=== PATIENT | male | born 1975 | race Caucasian/White ===

== ENCOUNTER 2021-03-10 10:09 | Emergency (ER) | payer OTHER ==
[2021-03-10 11:01] LABS: Absolute Lymphocytes (CBC) 2.5 K/uL (0.7-4.9); Basophils % 0.5 % (0-1.3); Hematocrit 44.7 % (39.6-49.0); MPV 9.6 fL (7.6-11.3); Protime INR 0.95; RBC Red Blood Cell Count 5.13 M/uL (4.33-5.43)
[2021-03-10 11:14] LABS: ALT/SGPT 48 U/L (12-78); AST/SGOT 22 U/L (15-37); Albumin 3.9 g/dL (3.4-5.0); Alkaline Phosphatase 79 U/L (45-117); BUN Blood Urea Nitrogen 20 mg/dL (7-18); Bicarbonate 24 mmol/L (21-32); Bilirubin Direct 0.2 mg/dL (0-0.2); Bilirubin Total 1.5 mg/dL (0.2-1.0); Glucose Level 103 mg/dL (74-106); NT PRO-BNP 27 pg/mL (<125); Potassium 4.1 mmol/L (3.5-5.1); Protein, Total 7.3 g/dL (6.4-8.2); Sodium Level 142 mmol/L (136-145); Troponin (Emerg Dept Use Only) < 0.02 ng/mL (0.0-0.045)
--- NOTE | 2021-03-10 11:34 | RAD REPORT ---
EXAM DESCRIPTION: CT - Chest For Pe Angio - 03/10/2021 11:11 am CLINICAL HISTORY: CHEST PAIN COMPARISON: None FINDINGS: Chest Wall: No suspicious thyroid nodules or pathologic lymphadenopathy. Lungs: No acute abnormality. Pleura: No significant effusions or pneumothorax. Mediastinum/meeta: No pathologic lymphadenopathy. Pulmonary arteries/Aorta: No filling defect identified. No aortic aneurysm. Heart: No significant pericardial effusion. Normal heart size. Upper abdomen: No acute abnormality. Bones: No acute abnormality. IMPRESSION: Negative for pulmonary embolism. No acute findings within the chest.
--- NOTE | 2021-03-10 11:35 | RAD REPORT ---
EXAM DESCRIPTION: RAD - Chest Single View - 03/10/2021 11:00 am CLINICAL HISTORY: CHEST PAIN COMPARISON: CHEST PA AND LAT 2 VIEW dated 11/16/2011; CHEST PA AND LAT 2 VIEW dated 09/10/2010 FINDINGS: No evidence of edema or pneumonia. The heart size is within normal limits.No acute osseous abnormality. No significant pleural effusions or pneumothorax. IMPRESSION: No acute cardiopulmonary disease.
--- NOTE | 2021-03-10 12:15 | ER ---
Nurse's Notes [facility] Name: Mookie Garcia Jr Age: 46 yrs Sex: Male : 1975 Arrival Date: 03/10/2021 Time: 10:11 Bed 3 Private MD: Diagnosis: Chest pain, unspecified Presentation: 03/10 10:17 Chief complaint: Patient states: left sided chest pain started last night , iw intermittent, worse when moving, and left arm felt tingly this morning, was golfing yesterday. Coronavirus screen: At this time, the client does not indicate any symptoms associated with coronavirus-19. Ebola Screen: Patient negative for fever greater than or equal to 101.5 degrees Fahrenheit, and additional compatible Ebola Virus Disease symptoms Patient denies exposure to infectious person. Patient denies travel to an Ebola-affected area in the 21 days before illness onset. No symptoms or risks identified at this time. Initial Sepsis Screen: Does the patient meet any 2 criteria? No. Patient's initial sepsis screen is negative. Does the patient have a suspected source of infection? No. Patient's initial sepsis screen is negative. Risk Assessment: Do you want to hurt yourself or someone else? Patient reports no desire to harm self or others. Onset of symptoms was March 09, 2021. 10:17 Method Of Arrival: Ambulatory iw 10:17 Acuity: SERAFIN 3 iw Historical: - Allergies: 10:19 NKA; iw - Home Meds: 10:19 None [Active]; iw - PMHx: 10:19 None; iw - PSHx: 10:19 None; iw - Immunization history:: Client reports receiving the 1st dose of the Covid vaccine, February 22, 2021. - Social history:: Smoking status: Patient/guardian denies using tobacco, Stopped _ months ago 4. - Family history:: not pertinent. - Hospitalizations: : No recent hospitalization is reported. Screenin:32 Abuse screen: Denies threats or abuse. Denies injuries from another. Nutritional ph screening: No deficits noted. Tuberculosis screening: No symptoms or risk factors identified. Fall Risk None identified. Assessment: 10:53 General: Appears in no apparent distress. comfortable, well groomed, Behavior is calm, ph cooperative, appropriate for age, Denies fever, feeling ill. Pain: Complains of pain in anterior aspect of left upper chest and mid-sternal area Pain does not radiate. Pain currently is 3 out of 10 on a pain scale. at worst was 9 out of 10 on a pain scale. Quality of pain is described as sharp, Pain began last night Is intermittent. Neuro: Level of Consciousness is awake, alert, obeys commands, Oriented to person, place, time, situation. Cardiovascular: Reports chest pain, shortness of breath, Denies lightheadedness, nausea, palpitations, vomiting, Capillary refill < 3 seconds in bilateral fingers Patient's skin is warm and dry. Rhythm is sinus rhythm Chest pain quality is sharp, is located in left anterior chest wall is aggravated by breathing. Respiratory: Airway is patent Respiratory effort is even, unlabored, Respiratory pattern is regular, symmetrical. GI: No signs and/or symptoms were reported involving the gastrointestinal system. Derm: Skin is intact, is healthy with good turgor, Skin is pink, warm \T\ dry. Musculoskeletal: Circulation, motion, and sensation intact. Range of motion: limited in all extremities. 11:57 Reassessment: Patient appears in no apparent distress at this time. Patient and/or ph family updated on plan of care and expected duration. Pain level reassessed. Patient is alert, oriented x 3, equal unlabored respirations, skin warm/dry/pink. 12:35 Reassessment: Patient appears in no apparent distress at this time. Patient and/or ph family updated on plan of care and expected duration. Pain level reassessed. Patient is alert, oriented x 3, equal unlabored respirations, skin warm/dry/pink. Pt instructed to follow up w/ crayon sawyer, d/c home. Vital Signs: 10:17 BP 141 / 100; Pulse 70; Resp 16; Temp 98.7; Pulse Ox 100% on R/A; Weight 86.18 kg; iw Height 5 ft. 8 in. (172.72 cm); Pain 8/10; 10:55 BP 139 / 81; Pulse 69; Resp 20; Pulse Ox 99% on R/A; Pain 3/10; ph 11:57 BP 139 / 87; Pulse 75; Resp 18; Pulse Ox 98% on R/A; ph 12:35 Temp 98.2; ph 10:17 Body Mass Index 28.89 (86.18 kg, 172.72 cm) iw Vitals: 10:55 Cardiac Rhythm Assessment Sinus rhythm. ph ED Course: 10:11 Patient arrived in ED. rg4 10:19 Triage completed. iw 10:20 Arm band placed on. iw 10:22 Syd Mckeon MD is Attending Physician. rn 10:32 Edda Lopez RN is Primary Nurse. ph 10:32 Patient has correct armband on for positive identification. Placed in gown. Bed in low ph position. Call light in reach. Side rails up X 1. engine monitor on. Pulse ox on. NIBP on. Door closed. Noise minimized. 10:40 Initial lab(s) drawn, by me, sent to lab. Inserted saline lock: 20 gauge in right ph antecubital area, using aseptic technique. Blood collected. Patient maintains SpO2 saturation greater than 95% on room air. 11:00 XRAY Chest (1 view) In Process Unspecified. EDMS 11:11 CT Chest For PE Angio In Process Unspecified. EDMS 12:14 Shanda Rodriguez MD is Referral Physician. rn 12:36 No provider procedures requiring assistance completed. IV discontinued, intact, ph bleeding controlled, No redness/swelling at site. Pressure dressing applied. Administered Medications: No medications were administered Outcome: 12:14 Discharge ordered by . rn 12:36 Discharged to home ambulatory. ph 12:36 Condition: good 12:36 Discharge instructions given to patient, Instructed on discharge instructions, follow up and referral plans. Demonstrated understanding of instructions, follow-up care. 12:36 Patient left the ED. ph Signatures: Dispatcher [employer] EDWA Estrellita Dunlap RN RN Syd Mckeon MD MD rn Hall, Patricia, RN RN ph Garcia, Rubi rg4
--- NOTE | 2021-03-10 12:15 | EDPHYS ---
Physician Documentation [facility] Name: Mookie Garcia Jr Age: 46 yrs Sex: Male : 1975 Arrival Date: 03/10/2021 Time: 10:11 Bed 3 Private MD: ED Physician Syd Mckeon HPI: 03/10 10:34 This 46 yrs old Male presents to ER via Ambulatory with complaints of Chest rn Pain. 10:34 The patient or guardian reports chest pain that is located primarily in the substernal rn area, anterior aspect of left upper chest. Onset: this morning. The pain radiates to the left arm. Associated signs and symptoms: Pertinent positives: None. Pertinent negatives: abdominal pain, cough, lower extremity swelling, near syncope, palpitations, shortness of breath, syncope, vomiting. The chest pain is described as aching, stabbing. Duration: The patient or guardian reports multiple episodes, that are intermittent. Modifying factors: The symptoms are alleviated by nothing. the symptoms are aggravated by nothing. Severity of pain: At its worst the pain was mild in the emergency department the pain is unchanged. The patient has not experienced similar symptoms in the past. The patient has not recently seen a physician. Patient states intermittent chest pain, substernal and left-sided, associated with achiness and left arm, never had before. Reports previous smoker since teenage years, and strong family history of heart problems, states father with first bypass surgery at his age. No direct trauma, no illness or cough. No history of DVT or PE.. Historical: - Allergies: 10:19 NKA; iw - Home Meds: 10:19 None [Active]; iw - PMHx: 10:19 None; iw - PSHx: 10:19 None; iw - Immunization history:: Client reports receiving the 1st dose of the Covid vaccine, February 22, 2021. - Social history:: Smoking status: Patient/guardian denies using tobacco, Stopped _ months ago 4. - Family history:: not pertinent. - Hospitalizations: : No recent hospitalization is reported. ROS: 10:34 Constitutional: Negative for fever, chills, and weight loss, Eyes: Negative for injury, rn pain, redness, and discharge, Neck: Negative for injury, pain, and swelling, Cardiovascular: Negative for palpitations, and edema, Respiratory: Negative for shortness of breath, cough, wheezing Abdomen/GI: Negative for abdominal pain, nausea, vomiting, diarrhea, and constipation, Back: Negative for injury and pain, : Negative for injury, bleeding, discharge, and swelling, MS/Extremity: Negative for injury and deformity, Skin: Negative for injury, rash, and discoloration, Neuro: Negative for headache, weakness, numbness, tingling, and seizure. 10:39 All other systems are negative. rn Exam: 10:34 Constitutional: This is a well developed, well nourished patient who is awake, alert, rn and in no acute distress. Head/Face: Normocephalic, atraumatic. Eyes: Periorbital areas with no swelling, redness, or edema. Cardiovascular: Regular rate and rhythm. No pulse deficits. Respiratory: No increased work of breathing, no retractions or nasal flaring. Abdomen/GI: Soft, non-tender Skin: Warm, dry MS/ Extremity: Pulses equal, no cyanosis. Neuro: Awake and alert, GCS 15 10:34 ECG was reviewed by the Attending Physician. Vital Signs: 10:17 BP 141 / 100; Pulse 70; Resp 16; Temp 98.7; Pulse Ox 100% on R/A; Weight 86.18 kg; iw Height 5 ft. 8 in. (172.72 cm); Pain 8/10; 10:55 BP 139 / 81; Pulse 69; Resp 20; Pulse Ox 99% on R/A; Pain 3/10; ph 11:57 BP 139 / 87; Pulse 75; Resp 18; Pulse Ox 98% on R/A; ph 12:35 Temp 98.2; ph 10:17 Body Mass Index 28.89 (86.18 kg, 172.72 cm) iw MDM: 10:22 Patient medically screened. rn 10:44 Data interpreted: monitoring manager: rate is 70 beats/min, rhythm is normal sinus rhythm, rn regular, with no ectopy, Interpretation: normal rate, normal rhythm, Pulse oximetry: on room air is 100 %. Interpretation: normal. 12:12 Differential diagnosis: acute myocardial infarction, acute pericarditis, anxiety, rn coronary artery disease chest wall pain, costochondritis, esophagitis, gastritis, gastroesophageal reflux disease (GERD), pericarditis, pleurisy, pneumothorax, pulmonary embolus, stable angina. Data reviewed: vital signs, nurses notes, lab test result(s), EKG, radiologic studies, CT scan, plain films, and as a result, I will discharge patient. Counseling: I had a detailed discussion with the patient and/or guardian regarding: the historical points, exam findings, and any diagnostic results supporting the discharge/admit diagnosis, lab results, radiology results, the need for outpatient follow up, to return to the emergency department if symptoms worsen or persist or if there are any questions or concerns that arise at home. Special discussion: Based on the patient's history, exam, and Dx evaluation, there is no indication for emergent intervention or inpatient Tx. It is understood by the patient/guardian that if the Sx's persist or worsen they need to return immediately for re-evaluation. I discussed with the patient/guardian in detail that at this point there is no indication for admission to the hospital. It is understood, however, that if the symptoms persist or worsen the patient needs to return immediately for re-evaluation. 12:13 ED course: Patient without acute findings and blood work, EKG, x-ray, or CT chest. rn Patient feels better. I recommended admission for chest pain work-up given family history and smoking history, but unable to get stress test over the weekend according to hospitalist service, patient does not want to be admitted over the weekend if nothing can be done, requests he be discharged home and plans on making an appointment with Dr. Rodriguez who he is seen before in the past. Return precautions given and understood.. 03/10 10:32 Order name: Basic Metabolic Panel; Complete Time: 11:03/10 10:32 Order name: CBC with Diff; Complete Time: 11:03/10 10:32 Order name: LFT's; Complete Time: 11:14 03/10 10:32 Order name: NT PRO-BNP; Complete Time: 11:14 03/10 10:32 Order name: PT-INR; Complete Time: 11:03/10 10:32 Order name: Troponin (emerg Dept Use Only); Complete Time: 11:14 03/10 10:32 Order name: XRAY Chest (1 view); Complete Time: 11:37 03/10 10:32 Order name: EKG; Complete Time: 10:33 03/10 10:32 Order name: Cardiac monitoring; Complete Time: 10:53 rn 03/10 10:32 Order name: EKG - Nurse/Tech; Complete Time: 10:53 rn 03/10 10:32 Order name: IV Saline Lock; Complete Time: 10:53 rn 03/10 10:32 Order name: CT Chest For PE Angio; Complete Time: 11:37 rn 03/10 12:16 Order name: SARS-COV-2 RT PCR EDUT 03/10 10:32 Order name: Labs collected and sent; Complete Time: 10:53 rn 03/10 10:32 Order name: O2 Per Protocol; Complete Time: 10:53 rn 03/10 10:32 Order name: O2 Sat Monitoring; Complete Time: 10:53 rn EC:34 Rate is 56 beats/min. Rhythm is regular. QRS [place] is Normal. MA interval is normal. QRS rn interval is normal. QT interval is normal. No Q waves. T waves are Normal. No ST changes noted. Clinical impression: Sinus bradycardia. Interpreted by me. Reviewed by me. Administered Medications: No medications were administered Disposition Summary: 03/10/21 12:14 Discharge Ordered Location: Home rn Problem: new rn Symptoms: have improved rn Condition: Stable rn Diagnosis - Chest pain, unspecified rn Followup: rn - With: Shanda Rodriguez MD - When: 2 - 3 days - Reason: Recheck today's complaints, Re-evaluation by your physician Discharge Instructions: - Discharge Summary Sheet rn - Nonspecific Chest Pain, Adult rn - Pain Without a Known Cause rn - Hypertension, Adult rn Forms: - Medication Reconciliation Form rn - Thank You Letter rn - Antibiotic external grinder tender - Prescription Opioid Use rn Signatures: Dispatcher [employer] [facility] Estrellita Dunlap RN RN Syd Cordoba MD MD burner operator: (The following items were deleted from the chart) 10:39 10:34 Constitutional: This is a well developed, well nourished patient who is awake, rn alert, and in no acute distress. Head/Face: Normocephalic, atraumatic. Eyes: Periorbital areas with no swelling, redness, or edema. Cardiovascular: Regular rate and rhythm. No pulse deficits. Respiratory: No increased work of breathing, no retractions or nasal flaring. Abdomen/GI: Soft, non-tender Skin: Warm, dry MS/ Extremity: Pulses equal, no cyanosis. Neuro: Awake and alert, GCS 15 rn 11:23 10:33 CORONAVIRUS+MR.LAB.BRZ ordered. EDMS EDMS
[2021-03-10 12:47] VITALS: BP 139/87; O2SAT 98
[2021-03-10 12:48] VITALS: TEMP 98.2
== END 2021-03-10 12:36 | disposition home or self-care (01) ==
LOC: ER 10:09
DX: R07.9 Chest pain, unspecified (principal); Z20.822 Contact with and (suspected) exposure to COVID-19
CPT/HCPCS: 93005; 85025; 80048; 36415; 85610; 80076; 84484; 83880; 71275; 71045; 99285; U0003; Q9967